=== PATIENT | male | born 2000 | race Caucasian/White ===

== ENCOUNTER 2021-06-14 16:30 | Outpatient (REF) | payer OTHER, SELFPAY | END 2021-06-14 16:31 | disposition home or self-care (01) | LOC: HO.SCI 16:30 | PROVIDERS: Visit Provider Psychiatry & Neurology Neurology | DX: Z13.89 Encounter for screening for other disorder (principal) ==

== ENCOUNTER 2021-06-25 10:36 | Outpatient (REF) | payer OTHER, SELFPAY ==
--- NOTE | ~2021-06-25 | MR_ITS ---
EXAMINATION: MR BRAIN WITHOUT AND WITH CONTRAST CLINICAL INFORMATION: Complex partial seizure disorder. COMPARISON: No relevant prior imaging. TECHNIQUE: Multiplanar MR imaging of the brain was performed without and with contrast. A total of 7.5 mL Gadavist was utilized for this examination. FINDINGS: Dedicated coronal oblique imaging through the temporal lobes reveal symmetric size, signal intensity, and morphological appearance of the hippocampal formations. No evidence of mesial temporal sclerosis. No identifiable malformation of cortical development. Postcontrast images reveal no abnormal mass or enhancement within the intracranial compartment. No intracranial mass effect or midline shift. Lateral and third ventricles are normal. No hydrocephalus. Midline structures including the cervicomedullary junction are normal. No acute bone marrow signal changes. There is no acute territorial infarct. No pathological magnetic susceptibility artifact. Intracranial vascular flow voids are maintained. There is no mastoid or middle ear effusion. Mild paranasal sinus disease primarily affecting the ethmoid air cells and maxillary sinuses. Globes and orbits are symmetric. MR/MR head/brain wo/w con IMPRESSION: Normal brain MRI. No discrete anatomic finding to provide an expiration for this patient's seizures.
== END 2021-06-25 10:37 | disposition home or self-care (01) ==
LOC: HO.MRI 10:36
PROVIDERS: PCP Internal Medicine; Visit Provider Psychiatry & Neurology Neurology
DX: G40.209 Localization-related (focal) (partial) symptomatic epilepsy and epileptic syndromes with complex partial seizures, not intractable, without status epilepticus (principal)
CPT/HCPCS: 70553; A9585

== ENCOUNTER 2021-07-04 09:27 | Outpatient (REF) | payer OTHER, SELFPAY ==
[2021-07-04 10:35] LABS: Anion Gap 11 (12-20); Blood Urea Nitrogen 12 mg/dL (9-16); Calcium 9.5 mg/dL (8.4-10.2); Carbon Dioxide 27 mmol/L (22-29); Chloride 106 mmol/L (96-108); Estimated Glomerular Filt Rate > 60; Glucose Random 90 mg/dL (60-115); Potassium 4.4 mmol/L (3.3-5.1); Sodium 140 mmol/L (135-145)
[2021-07-04 10:59] LABS: Vitamin D 25-OH Total 23.3 ng/mL (>30)
[2021-07-04 11:10] LABS: Syphilis Screen Nonreactive (Nonreactive)
[2021-07-04 11:18] LABS: Folate 5.8 ng/mL (> or = 4.0); Vitamin B12 199 pg/mL (200-900)
[2021-07-04 11:22] LABS: Erythrocyte Sedimentation Rate 1 MM/HR (0-15)
[2021-07-05 08:26] LABS: Lyme Abs Screen <0.90 index
[2021-07-05 23:30] LABS: Anti Nuclear Antibody Screen POSITIVE (NEGATIVE)
== END 2021-07-04 09:28 | disposition home or self-care (01) ==
LOC: HO.LAB 09:27
PROVIDERS: PCP Internal Medicine; Visit Provider Psychiatry & Neurology Neurology
DX: G93.40 Encephalopathy, unspecified (principal)
CPT/HCPCS: 36415; 80048; 82306; 82607; 82746; 85652; 86038; 86039; 86617; 86618; 86780